=== PATIENT | female | born 1980 | race Caucasian/White ===

== ENCOUNTER 2016-11-19 21:51 | Emergency (ER) | payer OTHER ==
[~2016-11-19] VITALS: Ht 170.2 cm; Wt 72.0 kg
[2016-11-19 22:04] VITALS: BP 131/80; PULSE 65; RESP 18; TEMP 98.7; O2SAT 100
[2016-11-19 22:15] VITALS: BP 131/80; PULSE 72; RESP 18; O2SAT 98
--- NOTE | 2016-11-19 23:12 | PD ---
HPI Chief Complaint: Cardiac Complaint Time Seen by Provider: 22:00 Travel History International Travel<30 days: No Contact w/Intl Traveler<30days: No Traveled to known affect area: No History of Present Illness HPI Patient is a 36-year-old female with a history of hyperparathyroidism presents the emergency department with numbness and tingling in his fingers her fingers and toes for the past few hours. Patient states she didn't think anything of it , she came in to work tonight she works here as a nurse and began having palpitations and she also has a history of. Patient states her calcium usually runs 10.0-10.8. She states that she has been evaluated for parathyroidectomy by her contracts paralegal Dr. fredo hernandez and currently they're managing her medically. Patient denies any chest pain shortness of breath abdominal pain nausea vomiting or diarrhea. She is feeling somewhat anxious. PFSH Past Medical History Medical History: Denies Significant Hx Diminished Hearing: No Tetanus Vaccination: < 5 Years Influenza Vaccination: Yes ?: Not Past Surgical History Appendectomy: Yes Social History Alcohol Use: Yes (SOC) Tobacco Use: No Substance Use: No Allergies-Medications (Allergen,Severity, Reaction): Coded Allergies: Levsin (Verified Allergy, Intermediate, hives, 11/19/16) Reported Meds & Prescriptions Reported Meds & Active Scripts Active No Active Prescriptions or Reported Medications Review of Systems Except as stated in HPI: all other systems reviewed are Neg Physical Exam Narrative GENERAL: [Well-developed well-nourished no apparent distress. SKIN: Focused skin assessment warm/dry. HEAD: Atraumatic. Normocephalic. EYES: Pupils equal and round. No scleral icterus. No injection or drainage. ENT: No nasal bleeding or discharge. Mucous membranes pink and moist. NECK: Trachea midline. No JVD. No goiter CARDIOVASCULAR: Regular rate and rhythm. No murmur appreciated. 2+ bilateral equal pulses in all 4 extremity's. RESPIRATORY: No accessory muscle use. Clear to auscultation. Breath sounds equal bilaterally. GASTROINTESTINAL: Abdomen soft, non-tender, nondistended. Hepatic and splenic margins not palpable. MUSCULOSKELETAL: No obvious deformities. No clubbing. No cyanosis. No edema. NEUROLOGICAL: Awake and alert. Sensation to light touch is intact in all 4 extremities. Patient has 5 out of 5 strength in all 4 extremity's, cranial nerves II through XII are grossly intact and nonfocal. PSYCHIATRIC: Appropriate mood and affect; insight and judgment normal. Data Data Last Documented VS Vital Signs Date Time Temp Pulse Resp B/P Pulse Ox O2 Delivery O2 Flow Rate FiO2 11/19/16 23:33 59 16 113/80 97 Room Air 11/19/16 22:04 98.7 Orders Complete Blood Count With Diff (11/19/16 22:01) Comprehensive Metabolic Panel (11/19/16 22:01) Magnesium (Mg) (11/19/16 22:01) Troponin I (11/19/16 22:01) Lipase (11/19/16 22:01) Ecg Monitoring (11/19/16 22:01) Iv Access Insert/Monitor (11/19/16 22:01) Oximetry (11/19/16 22:01) Oxygen Administration (11/19/16 22:01) Urinalysis - C+S If Indicated (11/19/16 23:33) Ed Urine Pregnancytest Poc (11/19/16 23:33) Electrocardiogram (11/19/16 ) Labs Laboratory Tests Test 11/19/16 11/19/16 22:44 23:36 White Blood Count 7.6 TH/MM3 Red Blood Count 4.61 MIL/MM3 Hemoglobin 14.2 GM/DL Hematocrit 41.3 % Mean Corpuscular Volume 89.6 FL Mean Corpuscular Hemoglobin 30.7 PG Mean Corpuscular Hemoglobin 34.3 % Concent Red Cell Distribution Width 12.8 % Platelet Count 274 TH/MM3 Mean Platelet Volume 8.6 FL Neutrophils (%) (Auto) 51.8 % Lymphocytes (%) (Auto) 36.4 % Monocytes (%) (Auto) 8.5 % Eosinophils (%) (Auto) 2.4 % Basophils (%) (Auto) 0.9 % Neutrophils # (Auto) 3.9 TH/MM3 Lymphocytes # (Auto) 2.8 TH/MM3 Monocytes # (Auto) 0.6 TH/MM3 Eosinophils # (Auto) 0.2 TH/MM3 Basophils # (Auto) 0.1 TH/MM3 CBC Comment DIFF FINAL Differential Comment Sodium Level 140 MEQ/L Potassium Level 3.3 MEQ/L Chloride Level 106 MEQ/L Carbon Dioxide Level 22.7 MEQ/L Anion Gap 11 MEQ/L Blood Urea Nitrogen 6 MG/DL Creatinine 0.68 MG/DL Estimat Glomerular Filtration 99 ML/MIN Rate Random Glucose 76 MG/DL Calcium Level 10.4 MG/DL Magnesium Level 2.0 MG/DL Total Bilirubin 0.9 MG/DL Aspartate Amino Transf 12 U/L (AST/SGOT) Alanine Aminotransferase 17 U/L (ALT/SGPT) Alkaline Phosphatase 64 U/L Troponin I LESS THAN 0.02 NG/ML Total Protein 7.5 GM/DL Albumin 4.2 GM/DL Lipase 128 U/L Urine Color YELLOW Urine Turbidity CLEAR Urine pH 5.5 Urine Specific [place] 1.007 Urine Protein NEG mg/dL Urine Glucose (UA) NEG mg/dL Urine Ketones 15 mg/dL Urine Occult Blood TRACE Urine Nitrite NEG Urine Bilirubin NEG Urine Leukocyte Esterase NEG Urine RBC 0-3 /hpf Urine Squamous Epithelial 0-5 /hpf Cells Urine Amorphous Sediment SMALL Urine Mucus OCC /lpf Microscopic Urinalysis Comment CULT NOT INDICATED MDM Medical Decision Making Medical Screen Exam Complete: Yes Emergency Medical Condition: Yes Interpretation(s) EKG shows normal sinus rhythm with normal axis normal R-wave progression. No concerning ST T changes. Intervals within normal limits. This is a normal EKG. Differential Diagnosis Electrolytes abdomen, ACS seems unlikely, PE is excluded by wells and PERC criteria, esophagitis, anxiety. Narrative Course Patient was roomed in emergency department, quite pleasant in no obvious distress. Initial workup putting EKG CBC CMP troponin only remarkable for mild hypercalcemia with a total calcium of 10.4. Patient was offered pain medicine in the emergency department declined. No obvious source of her paresthesias and palpitations has been identified. The patient has not been having any chest pain. The patient is low risk for cardiac etiology and is stable for discharge. Discussed with her follow-up with her contracts paralegal as well as her primary care physician and return to ED criteria. Diagnosis Primary Impression: Distal paresthesia Scripts No Active Prescriptions or Reported Meds Disposition: 01 DISCHARGE HOME Condition: Stable Gareth Rubi MD November 19, 2016 23:12
[2016-11-19 23:15] LABS: AUTOMATED NEUTROPHIL # 3.9 TH/MM3 (1.8-7.7); BASOPHIL # 0.1 TH/MM3 (0-0.2); BASOPHIL % 0.9 % (0.0-2.0); EOSINOPHIL # 0.2 TH/MM3 (0-0.4); EOSINOPHIL % 2.4 % (0.0-4.0); HEMATOCRIT 41.3 % (35.0-46.0); HEMO FLAGS DIFF FINAL; LYMPH % 36.4 % (9.0-44.0); LYMPHOCYTE # 2.8 TH/MM3 (1.0-4.8); MEAN CELL VOLUME 89.6 FL (80.0-100.0); MEAN CORPUSCULAR HEMOGLOBIN 30.7 PG (27.0-34.0); MEAN CORPUSCULAR HGB CONC 34.3 % (32.0-36.0); MONO % 8.5 % (0.0-8.0); NEUT % 51.8 % (16.0-70.0); PLATELET COUNT 274 TH/MM3 (150-450); RED BLOOD COUNT 4.61 MIL/MM3 (4.00-5.30); RED CELL DISTRIBUTION WIDTH 12.8 % (11.6-17.2); WHITE BLOOD COUNT 7.6 TH/MM3 (4.0-11.0)
[2016-11-19 23:33] VITALS: BP 113/80; PULSE 59; RESP 16; O2SAT 97
[2016-11-19 23:36] LABS: CHLORIDE 106 MEQ/L (98-107); POTASSIUM 3.3 MEQ/L (3.5-5.1); SODIUM (NA) 140 MEQ/L (136-145)
[2016-11-19 23:40] LABS: ANION GAP 11 MEQ/L (5-15); BICARBONATE 22.7 MEQ/L (21.0-32.0); BLOOD UREA NITROGEN 6 MG/DL (7-18)
[2016-11-19 23:43] LABS: ALT (GPT) 17 U/L (10-53); AST (GOT) 12 U/L (15-37); GLOMERULAR FILTRATION RATE 99 ML/MIN (>89)
[2016-11-19 23:44] LABS: TOTAL BILIRUBIN ADULT 0.9 MG/DL (0.2-1.0)
[2016-11-19 23:46] LABS: ALKALINE PHOSPHATASE 64 U/L (45-117)
[2016-11-19 23:47] LABS: BLOOD, URINE TRACE (NEG); GLUCOSE,URINE NEG (NEG); KETONE, URINE 15 mg/dL (NEG); NITRITE,URINE NEG (NEG); PH, URINE 5.5 (5.0-8.5)
[2016-11-20 00:13] LABS: MUCUS URINE OCC /lpf (OCC); SQUAMOUS EPITHELIAL CELL URINE 0-5 /hpf (0-5); URINE COLOR YELLOW (YELLW/STRAW)
[2016-11-20 00:14] LABS: RBC, URINE 0-3 /hpf (0-3)
[2016-11-20 00:15] LABS: COMMENT (UR) CULT NOT INDICATED; CULTURE IF INDICATED CULT NOT INDICATED
--- NOTE | 2016-11-20 11:23 | EKG ---
Date Performed: 11/19/2016 Time Performed: 21:52:12 PTAGE: 36 years EKG: Baseline artifact is present. Sinus rhythm rSr'(V1) - probable normal variant Anteroseptal T wave changes are nonspecific Borderline ECG NO PREVIOUS TRACING DOCTOR: Fercho Smith Interpretating Date/Time 11/20/2016 11:21:14
== END 2016-11-20 00:54 | disposition home or self-care (01) ==
LOC: PHED 21:51
DX: R20.8 Other disturbances of skin sensation (principal)
CPT/HCPCS: 80053; 81001; 83690; 83735; 84484; 84703; 85025; 93005; 99283